=== PATIENT | male | born 1990 | race Caucasian/White ===

== ENCOUNTER → 2020-02-20 | Outpatient (CLI) | payer SELFPAY ==
[~2020-02-20] MED LIST: Bactrim 400-801 EACH PO; CEPH500 PO; CLIN300 PO; HYDACE5 PO; IBUP800 PO; Mupirocin22 GM TOP; RXHYDACE PO; RXOXYACE PO; RXTRAM50 PO; TRAM50 PO
== END | disposition home or self-care (01) ==
LOC: LAB SHORT 18:38 → LAB 18:38
DX: L02.91 Cutaneous abscess, unspecified (principal)
CPT/HCPCS: 87070; 87075; 87077; 87147; 87186; 87205

== ENCOUNTER 2023-03-16 05:12 | Day surgery (SDC) | payer OTHER ==
[~2023-03-16 05:12] MED LIST changes: +HYDR1TAB94 PO
== END 2023-03-16 23:00 | disposition home or self-care (01) ==
LOC: WOUND 05:12
DX: S69.91XD Unspecified injury of right wrist, hand and finger(s), subsequent encounter (principal); W31.89XD Contact with other specified machinery, subsequent encounter; L08.9 Local infection of the skin and subcutaneous tissue, unspecified; Y99.0 Civilian activity done for income or pay; F17.200 Nicotine dependence, unspecified, uncomplicated; Z88.0 Allergy status to penicillin
CPT/HCPCS: 99406; G0463

== ENCOUNTER 2023-03-23 00:56 | Day surgery (SDC) | payer OTHER | END 2023-03-23 22:43 | disposition home or self-care (01) | LOC: WOUND 00:56 | DX: L08.9 Local infection of the skin and subcutaneous tissue, unspecified (principal); S62.634D Displaced fracture of distal phalanx of right ring finger, subsequent encounter for fracture with routine healing | CPT/HCPCS: G0463 ==